=== PATIENT | male | born 1980 | race Caucasian/White ===

== ENCOUNTER → 2016-04-09 | Outpatient (CLI) | payer OTHER ==
--- NOTE | 2016-04-09 11:40 | XR ---
Lumbosacral spine HISTORY: Low back pain 5 views of the lumbosacral spine correlated to previous exam 04 July 2012 There is mild spinal curvature. Lumbar vertebral bodies show preserved height, alignment, and bone mi neralization. No evident spondylolysis. Loss of disc height present at L5-S1, there is associated vac uum phenomenon. Spondylosis is noted. Sclerosis present in the posterior elements. IMPRESSION: Degenerative disc disease. Facet arthropathy, consider lumbar MRI.
== END | disposition home or self-care (01) ==
LOC: RADXRMAIN 10:19
PROVIDERS: ATTEND Internal Medicine
DX: M51.37 Other intervertebral disc degeneration, lumbosacral region (principal); M12.88 Other specific arthropathies, not elsewhere classified, other specified site
CPT/HCPCS: 72110

== ENCOUNTER → 2016-04-23 | Outpatient (CLI) | payer OTHER ==
--- NOTE | 2016-04-23 09:02 | MR ---
EXAMINATION TYPE: MR lumbar spine wo con DATE OF EXAM: 04/23/2016 8:51 AM COMPARISON: NONE HISTORY: Inflammatory spondylopathies lsp, lower back pain TECHNIQUE: Multiplanar, multisequence images of the lumbar spine were acquired. L1-L2: Normal disc appearance without desiccation. No herniation, protrusion or disc bulging. No ca nal stenosis is present. Foramina are patent bilaterally. L2-L3: Normal disc appearance without desiccation. No herniation, protrusion or disc bulging. No ca nal stenosis is present. Foramina are patent bilaterally. L3-L4: Normal disc appearance without desiccation. No herniation, protrusion or disc bulging. No ca nal stenosis is present. Foramina are patent bilaterally. L4-L5: Mild disc desiccation is noted. There is mild posterior disc bulge with minimal effacement of the ventral thecal sac. No evidence of herniation protrusion or central stenosis. Foramina are patent . L5-S1: Moderate disc desiccation is noted. There is a left paracentral subligamentous disc herniation resulting in left lateral recess stenosis and left foraminal encroachment. No evidence for central s tenosis. Mild ventral spondylosis. Lumbar segments are intact. No paraspinal masses are identified. Conus medullaris has a normal appe arance. IMPRESSION: 1. Degenerative disc disease as discussed. 2. Left paracentral disc herniation at L5-S1 as noted above.
== END | disposition home or self-care (01) ==
LOC: RADMRIMAIN 08:08
PROVIDERS: ATTEND Internal Medicine
DX: M51.27 Other intervertebral disc displacement, lumbosacral region (principal); M51.36 Other intervertebral disc degeneration, lumbar region
CPT/HCPCS: 72148; A9577

== ENCOUNTER → 2018-02-24 | Outpatient (CLI) | payer OTHER ==
--- NOTE | 2018-02-25 03:44 | MR ---
EXAMINATION TYPE: MR knee LT wo con DATE OF EXAM: 02/24/2018 COMPARISON: None HISTORY: Knee pain TECHNIQUE: Multiplanar, multisequence imaging of the left knee is performed without IV contrast. FINDINGS: There is moderate knee joint effusion. There is abnormal increased signal involving a large area of t he medial tibial condyle. This is consistent with a bone bruise. I see no fracture line. Anterior cruciate ligament is intact. The posterior cruciate ligament is not well-defined. This proba js a tear in the posterior aspect of the posterior cruciate ligament near the attachment on the tibi a. There is small horizontal tear in the posterior horn medial meniscus. The lateral meniscus is intact. The collateral ligaments appear intact. IMPRESSION: The exam shows moderate joint effusion. There is at least a partial tear and probably a complete tear of the posterior cruciate ligament at the attachment on the tibia. Moderate-sized bone bruise in the medial tibial condyle. There is a 1.5 cm bone bruise at the tibial spines. No definite fracture line seen. Small horizontal tear of the posterior horn medial meniscus.
== END ==
LOC: RADMRIMAIN 19:36
PROVIDERS: ATTEND Orthopaedic Surgery
DX: M25.462 Effusion, left knee (principal); S83.522A Sprain of posterior cruciate ligament of left knee, initial encounter; S83.242A Other tear of medial meniscus, current injury, left knee, initial encounter; S80.12XA Contusion of left lower leg, initial encounter

== ENCOUNTER → 2019-04-21 | Outpatient (CLI) | payer BC, OTHER ==
--- NOTE | 2019-04-21 13:06 | MR ---
EXAMINATION TYPE: MR brain wo/w con DATE OF EXAM: 04/21/2019 COMPARISON: CT brain 02/03/2018 HISTORY: Dizziness and giddiness TECHNIQUE: Multiplanar, multisequence images of the brain and brainstem is performed without and with IV contras t, utilizing 7.5 mL intravenous Gadavist . FINDINGS: Diffusion weighted images demonstrate no evidence of a recent infarct or other diffusion ab normality. There is no extra-axial fluid collection. Scattered hyperintensities on inversion recove ry T2-weighted sequences present in the subcortical white matter, approximately 10 lesions are presen t, largest in the right frontal lobe measures 4 mm on axial image 17. The ventricular system and cist ernal spaces are normal in size and appearance. The brain volume is age appropriate. Midline structures demonstrate normal morphology. The craniocervical junction appears within normal limits. Post contrast images demonstrate no abnormal enhancement. The dural venous sinuses appear pa tent. The visualized sinuses are clear and the globes are intact. IMPRESSION: Nonspecific white matter demyelination of questionable clinical significance, consider mi graine headaches, hypertension, vasculitis, chronic small vessel ischemic changes, Lyme disease, mult iple sclerosis felt to be less likely.
== END | disposition home or self-care (01) ==
LOC: RADMRIMAIN 09:04
PROVIDERS: ATTEND Family Medicine
DX: R42 Dizziness and giddiness (principal)
CPT/HCPCS: 70553; A9585

== ENCOUNTER 2020-03-02 22:19 | Emergency (ER) | payer BC, OTHER ==
[2020-03-02 22:26] VITALS: PULSE 110; RESP 18; TEMP 98.2
[2020-03-02] MEDS ORDERED: SODIUM CHLORIDE 0.9% 1,000 ML IV STA (23:01)
[2020-03-02 23:15] LABS: Basophils # (A) 0.1 k/uL (0-0.2); Basophils % (A) 1 %; Eosinophils # (A) 0.1 k/uL (0-0.7); Eosinophils % (A) 1 %; HCT 45.7 % (39.0-53.0); Lymphocytes % (A) 21 %; MCH 33.8 pg (25.0-35.0); MCHC 35.1 g/dL (31.0-37.0); MCV 96.5 fL (80.0-100.0); Mean Platelet Volume 8.6; Monocytes # (A) 0.6 k/uL (0-1.0); Monocytes % (A) 6 %; Neutrophils # (A) 6.4 k/uL (1.3-7.7); Neutrophils % (A) 67 %; Platelet Count 236 k/uL (150-450); RBC 4.73 m/uL (4.30-5.90); RDW 11.7 % (11.5-15.5); WBC 9.5 k/uL (3.8-10.6)
[2020-03-02 23:33] LABS: ALT 25 U/L (4-49); AST 19 U/L (17-59); African American GFR (CKD) >90 (>60 ml/min/1.73 sqM); Albumin 4.8 g/dL (3.5-5.0); Alkaline Phosphatase 80 U/L (38-126); Anion Gap 9 mmol/L; Blood Urea Nitrogen 24 mg/dL (9-20); C Reactive Protein <5.0 mg/L (<10.0); Calcium 9.7 mg/dL (8.4-10.2); Carbon Dioxide 26 mmol/L (22-30); Chloride 103 mmol/L (98-107); Glucose 106 mg/dL (74-99); LDH 323 U/L (313-618); Non-African American GFR(CKD) >90 (>60 ml/min/1.73 sqM); Phosphorus 4.1 mg/dL (2.5-4.5); Potassium 3.8 mmol/L (3.5-5.1); Sodium 138 mmol/L (137-145); Total Bilirubin 0.5 mg/dL (0.2-1.3); Total Protein 6.9 g/dL (6.3-8.2)
--- NOTE | 2020-03-02 23:43 | ED ---
Recheck HPI - General Chief Complaint: Recheck/Abnormal Lab/Rx Stated Complaint: Chest Pain/High HR/High BP Time Seen by Provider: 03/02/20 22:27 Source: patient, RN notes reviewed, old records reviewed Mode of arrival: ambulatory Limitations: no limitations - History of Present Illness Initial Comments: This is a 39-year-old male DF states his does not feel well having increased anxiety and stress in his life lately weight loss decreased appetite. Patient admits to smoking marijuana daily. Otherwise no medications takes no medications is notices heart rate and blood pressures been elevated lately and that coupled with weight loss is had of concerned. Recent stress includes ex- and mother of this child as well as some business issues MD Complaint: other (Not feeling well weight loss) -: week(s) Returns Today for: other (Occasional palpitations no real pain) Symptoms Since Prior Visit: no new symptoms Context: other (None) Associated Symptoms: none Treatments Prior to Arrival: other (None) - Related Data Home Medications Medication Instructions Recorded Confirmed Multivitamins, Thera [Multivitamin 1 tab PO DAILY 02/03/18 02/03/18 (formulary)] Naproxen [Naprosyn] 500 mg PO Q12HR PRN 02/03/18 02/03/18 buPROPion XL [Wellbutrin Xl] 300 mg PO DAILY 02/03/18 02/03/18 Allergies Allergy/AdvReac Type Severity Reaction Status Date / Time No Known Allergies Allergy Verified 03/02/20 22:26 Review of Systems ROS Statement: Those systems with pertinent positive or pertinent negative responses have been documented in the HPI. ROS Other: All systems not noted in ROS Statement are negative. Past Medical History Past Medical History: No Reported History History of Any Multi-Drug Resistant Organisms: MRSA Date of last positivie culture/infection: 2009 MDRO Source:: abd Past Surgical History: No Surgical Hx Reported Additional Past Surgical History / Comment(s): mrsa in abd cleaned out Past Psychological History: No Psychological Hx Reported Smoking Status: Never smoker Past Alcohol Use History: None Reported Past Drug Use History: Marijuana General Exam Limitations: no limitations General appearance: alert, in no apparent distress, anxious Head exam: Present: atraumatic, normocephalic, normal inspection Eye exam: Present: normal appearance, PERRL, EOMI. Absent: scleral icterus, conjunctival injection, periorbital swelling ENT exam: Present: normal exam, mucous membranes moist Neck exam: Present: normal inspection. Absent: tenderness, meningismus, lymphadenopathy Respiratory exam: Present: normal lung sounds bilaterally. Absent: respiratory distress, wheezes, rales, rhonchi, stridor Cardiovascular Exam: Present: normal rhythm, tachycardia, normal heart sounds. Absent: systolic murmur, diastolic murmur, rubs, gallop, clicks GI/Abdominal exam: Present: soft, normal bowel sounds. Absent: distended, tenderness, guarding, rebound, rigid Extremities exam: Present: normal inspection, full ROM, normal capillary refill. Absent: tenderness, pedal edema, joint swelling, calf tenderness Back exam: Present: normal inspection Neurological exam: Present: alert, oriented X3, CN II-XII intact Psychiatric exam: Present: normal affect, normal mood Skin exam: Present: warm, dry, intact, normal color. Absent: rash Course Vital Signs 03/02/20 22:22 Temperature 98.2 F Pulse Rate 110 H Respiratory 18 Rate Blood Pressure 151/97 O2 Sat by Pulse 98 Oximetry - Reevaluation(s) Reevaluation #1: 03/03/20 02:33 Medical record is reviewed Reevaluation #2: 03/03/20 02:33 Patient symptoms are relatively resolved Reevaluation #3: 03/03/20 02:33 Patient informed of results and questions answered Medical Decision Making - Medical Decision Making 39 female to the ER for evaluation, patient presents today for evaluation of anorexia weight loss palpitations hypertension, patient will follow-up with primary care regards to hypertension otherwise patient feels well and can be discharged home - Lab Data Result diagrams: 03/02/20 22:53 03/02/20 23:01 Lab Results 03/02/20 03/02/20 03/02/20 Range/Units 22:53 23:01 23:01 WBC 9.5 (3.8-10.6) k/uL RBC 4.73 (4.30-5.90) m/uL Hgb 16.0 (13.0-17.5) gm/dL Hct 45.7 (39.0-53.0) % MCV 96.5 (80.0-100.0) fL MCH 33.8 (25.0-35.0) pg MCHC 35.1 (31.0-37.0) g/dL RDW 11.7 (11.5-15.5) % Plt Count 236 (150-450) k/uL MPV 8.6 Neutrophils % 67 % Lymphocytes % 21 % Monocytes % 6 % Eosinophils % 1 % Basophils % 1 % Neutrophils # 6.4 (1.3-7.7) k/uL Lymphocytes # 2.0 (1.0-4.8) k/uL Monocytes # 0.6 (0-1.0) k/uL Eosinophils # 0.1 (0-0.7) k/uL Basophils # 0.1 (0-0.2) k/uL Sodium 138 (137-145) mmol/L Potassium 3.8 (3.5-5.1) mmol/L Chloride 103 (98-107) mmol/L Carbon Dioxide 26 (22-30) mmol/L Anion Gap 9 mmol/L BUN 24 H (9-20) mg/dL Creatinine 1.03 (0.66-1.25) mg/dL Est GFR (CKD-EPI)AfAm >90 (>60 ml/min/1.73 sqM) Est GFR (CKD-EPI)NonAf >90 (>60 ml/min/1.73 sqM) Glucose 106 H (74-99) mg/dL Plasma Lactic Acid John 1.4 (0.7-2.0) mmol/L Calcium 9.7 (8.4-10.2) mg/dL Phosphorus 4.1 (2.5-4.5) mg/dL Magnesium 2.0 (1.6-2.3) mg/dL Total Bilirubin 0.5 (0.2-1.3) mg/dL AST 19 (17-59) U/L ALT 25 (4-49) U/L Alkaline Phosphatase 80 (38-126) U/L Lactate Dehydrogenase 323 (313-618) U/L C-Reactive Protein <5.0 (<10.0) mg/L Total Protein 6.9 (6.3-8.2) g/dL Albumin 4.8 (3.5-5.0) g/dL Urine Color Urine Appearance (Clear) Urine pH (5.0-8.0) Ur Specific [place] (1.001-1.035) Urine Protein (Negative) Urine Glucose (UA) (Negative) Urine Ketones (Negative) Urine Blood (Negative) Urine Nitrite (Negative) Urine Bilirubin (Negative) Urine Urobilinogen (<2.0) mg/dL Ur Leukocyte Esterase (Negative) Urine WBC (0-5) /hpf 03/03/20 Range/Units 01:55 WBC (3.8-10.6) k/uL RBC (4.30-5.90) m/uL Hgb (13.0-17.5) gm/dL Hct (39.0-53.0) % MCV (80.0-100.0) fL MCH (25.0-35.0) pg MCHC (31.0-37.0) g/dL RDW (11.5-15.5) % Plt Count (150-450) k/uL MPV Neutrophils % % Lymphocytes % % Monocytes % % Eosinophils % % Basophils % % Neutrophils # (1.3-7.7) k/uL Lymphocytes # (1.0-4.8) k/uL Monocytes # (0-1.0) k/uL Eosinophils # (0-0.7) k/uL Basophils # (0-0.2) k/uL Sodium (137-145) mmol/L Potassium (3.5-5.1) mmol/L Chloride (98-107) mmol/L Carbon Dioxide (22-30) mmol/L Anion Gap mmol/L BUN (9-20) mg/dL Creatinine (0.66-1.25) mg/dL Est GFR (CKD-EPI)AfAm (>60 ml/min/1.73 sqM) Est GFR (CKD-EPI)NonAf (>60 ml/min/1.73 sqM) Glucose (74-99) mg/dL Plasma Lactic Acid John (0.7-2.0) mmol/L Calcium (8.4-10.2) mg/dL Phosphorus (2.5-4.5) mg/dL Magnesium (1.6-2.3) mg/dL Total Bilirubin (0.2-1.3) mg/dL AST (17-59) U/L ALT (4-49) U/L Alkaline Phosphatase (38-126) U/L Lactate Dehydrogenase (313-618) U/L C-Reactive Protein (<10.0) mg/L Total Protein (6.3-8.2) g/dL Albumin (3.5-5.0) g/dL Urine Color Light Yellow Urine Appearance Clear (Clear) Urine pH 5.5 (5.0-8.0) Ur Specific [place] 1.012 (1.001-1.035) Urine Protein Negative (Negative) Urine Glucose (UA) Negative (Negative) Urine Ketones Negative (Negative) Urine Blood Negative (Negative) Urine Nitrite Negative (Negative) Urine Bilirubin Negative (Negative) Urine Urobilinogen <2.0 (<2.0) mg/dL Ur Leukocyte Esterase Trace H (Negative) Urine WBC 2 (0-5) /hpf - EKG Data -: EKG Interpreted by Me (EKG shows sinus rhythm 86 HI 152 QRS 94 QTC 40 to) - Radiology Data Radiology results: report reviewed (CT brain and chest abdomen pelvis negative for acute disease), image reviewed Disposition Clinical Impression: Weakness, Anxiety, Hypertension Disposition: HOME SELF-CARE Condition: Good Instructions (If sedation given, give patient instructions): Stress (ED), Hypertension (ED) Is patient prescribed a controlled substance at d/c from ED?: No Referrals: Giuliana Castellano MD [Primary Care Provider] - 1-2 days
--- NOTE | 2020-03-03 01:43 | CT ---
EXAM: CT Head Without Intravenous Contrast CLINICAL HISTORY: ITS.REASON CT Reason: pain TECHNIQUE: Axial computed tomography images of the head/brain without intravenous contrast. CTDI is 50.8 mGy and DLP is 1028.4 mGy-cm. This CT exam was performed using one or more of the following dose reduction techniques: automated exposure control, adjustment of the mA and/or kV according to patient size, and/or use of iterative reconstruction technique. COMPARISON: 02/03/2018 FINDINGS: Brain: No acute intracranial hemorrhage. Baer-white differentiation is preserved throughout the cerebral hemispheres. Posterior fossa is symmetric. Ventricles: Unremarkable. No ventriculomegaly. Basilar cisterns are widely patent. Bones/joints: Unremarkable. No acute fracture. Soft tissues: Unremarkable. Orbits and globes are normal in appearance. Sinuses: Unremarkable as visualized. No acute sinusitis. Mastoid air cells: Unremarkable as visualized. No mastoid effusion. IMPRESSION: No acute intracranial abnormality.
--- NOTE | 2020-03-03 01:45 | CT ---
EXAM: CT Angiography Chest With Intravenous Contrast CLINICAL HISTORY: ITS.REASON CT Reason: pain TECHNIQUE: Axial computed tomographic angiography images of the chest with intravenous contrast. CTDI is 14.5 mGy and DLP is 540.6 mGy-cm. This CT exam was performed using one or more of the following dose reduction techniques: automated exposure control, adjustment of the mA and/or kV according to patient size, and/or use of iterative reconstruction technique. MIP reconstructed images were created and reviewed. COMPARISON: 02/03/2018 FINDINGS: Pulmonary arteries: Unremarkable. No pulmonary embolism. Aorta: No acute findings. No thoracic aortic aneurysm. Lungs: Unremarkable. No mass. No consolidation. Pleural space: Unremarkable. No significant effusion. No pneumothorax. Heart: Unremarkable. No cardiomegaly. No significant pericardial effusion. Bones/joints: No acute fracture. No dislocation. Soft tissues: Unremarkable. Lymph nodes: Unremarkable. No enlarged lymph nodes. IMPRESSION: 1. No acute pulmonary embolism. 2. No acute intrathoracic process.
--- NOTE | 2020-03-03 01:47 | CT ---
EXAM: CT Abdomen and Pelvis With Intravenous Contrast CLINICAL HISTORY: ITS.REASON CT Reason: pain TECHNIQUE: Axial computed tomography images of the abdomen and pelvis with intravenous contrast. CTDI is 14.5 mGy and DLP is 540.6 mGy-cm. This CT exam was performed using one or more of the following dose reduction techniques: automated exposure control, adjustment of the mA and/or kV according to patient size, and/or use of iterative reconstruction technique. COMPARISON: 02/03/2018 FINDINGS: Lung bases: Unremarkable. No mass. No consolidation. ABDOMEN: Liver: Unremarkable. No mass. Gallbladder and bile ducts: Unremarkable. No calcified stones. No ductal dilation. Pancreas: Unremarkable. No mass. No ductal dilation. Spleen: Unremarkable. No splenomegaly. Adrenals: Unremarkable. No mass. Kidneys and ureters: Unremarkable. No solid mass. No hydronephrosis. Stomach and bowel: Unremarkable. No obstruction. No mucosal thickening. PELVIS: Appendix: No findings to suggest acute appendicitis. Bladder: Unremarkable. No mass. Reproductive: Unremarkable as visualized. ABDOMEN and PELVIS: Intraperitoneal space: Unremarkable. No free air. No significant fluid collection. Bones/joints: No acute fracture. No dislocation. Soft tissues: Unremarkable. Vasculature: Unremarkable. No abdominal aortic aneurysm. Lymph nodes: Unremarkable. No enlarged lymph nodes. IMPRESSION: No acute intra-abdominal process.
[2020-03-03 02:12] LABS: Appearance,Urine Clear (Clear); Bilirubin,Urine Negative (Negative); Blood,Urine Negative (Negative); Color,Urine Light Yellow; Glucose,Urine (UA) Negative (Negative); Ketones,Urine Negative (Negative); Leukocyte Esterase,Urine Trace (Negative); Nitrite,Urine Negative (Negative); PH, Urine 5.5 (5.0-8.0); Protein,Urine Negative (Negative); Specific Gravity,Urine 1.012 (1.001-1.035); Urobilinogen,Urine <2.0 mg/dL (<2.0); WBC,Urine 2 /hpf (0-5)
[2020-03-03 02:33] VITALS: BP 131/85
== END 2020-03-03 02:28 | disposition home or self-care (01) ==
LOC: EC 22:19
DX: F41.9 Anxiety disorder, unspecified (principal); I10 Essential (primary) hypertension; R53.1 Weakness; Z79.899 Other long term (current) drug therapy
CPT/HCPCS: 36415; 93005; 80053; 83605; 83615; 83735; 84100; 85025; 86140; 81001; 70450; 71275; 74177; 99284; 96360; Q9967

== ENCOUNTER 2024-07-02 20:08 | Emergency (ER) | payer OTHER ==
[2024-07-02] MEDS: AMOXIC-POT CLAV 875-125MG 1 EACH TAB PO STA (20:47)
[2024-07-02] MEDS: LIDOCAINE 1% INJ 10MG/ML (20 ML MDV) SQ ONE (20:48)
[2024-07-02] MEDS: DIPH,PERTUS(ACELL)TETVAC-LF 0.5 ML VIAL IM ONE (20:48)
[2024-07-02] MEDS: KETOROLAC 15 MG/ML 1 ML VIAL IM STA (20:49)
--- NOTE | 2024-07-02 21:05 | ED ---
General Adult HPI - General Chief complaint: Animal Bite Stated complaint: animal bite Time Seen by Provider: 07/02/24 20:19 Source: patient, RN notes reviewed Mode of arrival: ambulatory Limitations: no limitations - History of Present Illness Initial comments: 44-year-old male presents to the emergency department for dog bite to his right index finger. Patient states that he went over to his friend's house and opened the door. He states that the dog ran up and bit him in the hand. He reports that the dog is up-to-date on vaccines including rabies. Patient is unsure when he last had a tetanus vaccine. - Related Data Home Medications Medication Instructions Recorded Confirmed Multivitamins, Thera [Multivitamin 1 tab PO DAILY 02/03/18 02/03/18 (formulary)] Naproxen [Naprosyn] 500 mg PO Q12HR PRN 02/03/18 02/03/18 buPROPion XL [Wellbutrin Xl] 300 mg PO DAILY 02/03/18 02/03/18 Previous Rx's Medication Instructions Recorded Amoxic-Pot Clav 875-125Mg 1 tab PO Q12HR #20 tab 07/02/24 [Augmentin 875-125] Allergies Allergy/AdvReac Type Severity Reaction Status Date / Time No Known Allergies Allergy Verified 07/02/24 20:15 Review of Systems ROS Statement: Those systems with pertinent positive or pertinent negative responses have been documented in the HPI. ROS Other: All systems not noted in ROS Statement are negative. Past Medical History Past Medical History: No Reported History History of Any Multi-Drug Resistant Organisms: MRSA Date of last positivie culture/infection: 2009 MDRO Source:: abd Past Surgical History: No Surgical Hx Reported Additional Past Surgical History / Comment(s): mrsa in abd cleaned out Past Psychological History: Anxiety, Bipolar, Depression Smoking Status: Former smoker Past Alcohol Use History: None Reported Past Drug Use History: Marijuana General Exam Limitations: no limitations General appearance: alert, in no apparent distress Head exam: Present: atraumatic, normocephalic, normal inspection Eye exam: Present: normal appearance, PERRL, EOMI. Absent: scleral icterus, conjunctival injection, periorbital swelling Respiratory exam: Present: normal lung sounds bilaterally. Absent: respiratory distress, wheezes, rales, rhonchi, stridor Cardiovascular Exam: Present: regular rate, normal rhythm, normal heart sounds. Absent: systolic murmur, diastolic murmur, rubs, gallop, clicks Extremities exam: Present: full ROM, normal capillary refill, other (Puncture wounds to the right hand and 1.5 centimeter laceration to the dorsal right second digit). Absent: tenderness, pedal edema, joint swelling, calf tenderness Neurological exam: Present: alert, oriented X3 Psychiatric exam: Present: normal affect, normal mood Skin exam: Present: warm, dry, normal color, other (See above). Absent: intact, rash Course Vital Signs 07/02/24 07/02/24 20:12 21:44 Temperature 97.7 F 98.0 F Pulse Rate 75 56 L Respiratory 16 18 Rate Blood Pressure 160/108 138/88 O2 Sat by Pulse 98 98 Oximetry Procedures - Laceration Laceration #1 Consent Obtained: verbal consent Indication: laceration Site: hand Size (cm): 2 Description: linear Depth: simple, single layer Anesthetic Used: lidocaine 1% Anesthesia Technique: nerve block Amount (mls): 6 Pre-repair: wound explored, irrigated extensively Type of Sutures: other Size of Sutures: 5-0 Number of Sutures: 3 Technique: simple, interrupted Patient Tolerated Procedure: well, no complications Medical Decision Making - Medical Decision Making Was pt. sent in by a medical professional or institution (ESTELA Jackson, [employer] INSPECTOR, urgent care, hospital, or [facility]...) When possible be specific @ -No Did you speak to anyone other than the patient for history (EMS, parent, family, police, friend...)? What history was obtained from this source @ -No Did you review nursing and triage notes (agree or disagree)? Why? @ -I reviewed and agree with nursing and triage notes Were old charts reviewed (outside hosp., previous admission, EMS record, old EKG, old radiological studies, urgent care reports/EKG's, [facility] records)? Report findings @ -No old charts were reviewed Differential Diagnosis (chest pain, altered mental status, abdominal pain women, abdominal pain men, vaginal bleeding, weakness, fever, dyspnea, syncope, headache, dizziness, GI bleed, back pain, seizure, CVA, palpatations, mental health, musculoskeletal)? @ -Laceration, dog bite, tetanus prophylaxis, this is not all-inclusive EKG interpreted by me (3pts min.). @ -None X-rays interpreted by me (1pt min.). @ -X-ray of the hand reveals no evidence of fracture or dislocation, no evidence of foreign body CT interpreted by me (1pt min.). @ -None done U/S interpreted by me (1pt. min.). @ -None done What testing was considered but not performed or refused? (CT, X-rays, U/S, labs)? Why? @ -None What meds were considered but not given or refused? Why? @ -None Did you discuss the management of the patient with other professionals (professionals i.e. , PA, B[employer]CH ASSEMBLY INSPECTOR, lab, RT, psych nurse, health social work professor, director pharmacy services, teacher, officer lieutenant, caseworker intake)? Give summary @ -No Was smoking cessation discussed for >3mins.? @ -No Was critical care preformed (if so, how long)? @ -No Were there social determinants of health that impacted care today? How? (Homelessness, low income, unemployed, alcoholism, drug addiction, transportation, low edu. Level, literacy, decrease access to med. care, senior care, rehab)? @ -No Was there de-escalation of care discussed even if they declined (Discuss DNR or withdrawal of care, Hospice)? DNR status @ -No What co-morbidities impacted this encounter? (DM, HTN, Smoking, COPD, CAD, Cancer, CVA, ARF, Chemo, Hep., AIDS, mental health diagnosis, sleep apnea, morbid obesity)? @ -None Was patient admitted / discharged? Hospital course, mention meds given and route, prescriptions, significant lab abnormalities, going to OR and other pertinent info. @ -Discharge. Patient presented to the emergency department for evaluation of dog bite to the right hand. X-rays obtained revealing no evidence of foreign body, overlying soft tissue injury is noted. The wounds were irrigated with saline. There is a laceration on the dorsal aspect of the second digit which was repaired loosely. The patient was updated on a tetanus shot. Patient was given a dose of Augmentin. A prescription was sent to the patient's pharmacy for Augmentin for prophylaxis. Patient advised to keep wound clean and dry. He is understanding agreeable with discharge plan. Patient stable at time of discharge. Case discussed with Dr. Bravo. Undiagnosed new problem with uncertain prognosis? @ -No Drug Therapy requiring intensive monitoring for toxicity (Heparin, Nitro, Insulin, Cardizem)? @ -No Were any procedures done? @ -No Diagnosis/symptom? @ -Dog bite Acute, or Chronic, or Acute on Chronic? @ -Acute Uncomplicated (without systemic symptoms) or Complicated (systemic symptoms)? @ -Uncomplicated Side effects of treatment? @ -No Exacerbation, Progression, or Severe Exacerbation? @ -No Poses a threat to life or bodily function? How? (Chest pain, [place], [place], pneumonia, PE, COPD, DKA, ARF, appy, cholecystitis, CVA, Diverticulitis, Homicidal, Suicidal, threat to staff... and all critical care pts) @ -No Disposition Clinical Impression: Dog bite Disposition: HOME SELF-CARE Condition: Stable Instructions (If sedation given, give patient instructions): Animal Bite (ED) Additional Instructions: Please follow up with your doctor. Keep your wound clean and dry. Follow up with your primary care provider. Return to the emergency department for new or worsening symptoms. Prescriptions: Amoxic-Pot Clav 875-125Mg [Augmentin 875-125] 1 tab PO Q12HR #20 tab Is patient prescribed a controlled substance at d/c from ED?: No Referrals: Giuliana Castellano MD [Primary Care Provider] - 1-2 days
--- NOTE | 2024-07-02 21:24 | XR ---
EXAMINATION TYPE: XR finger RT DATE OF EXAM: 07/02/2024 9:03 PM COMPARISON: None. CLINICAL INDICATION: Male, 44 years old with history of 2nd digit dog bite, pain TECHNIQUE: 3 view(s) obtained. FINDINGS: Soft tissue injury over the proximal phalanx right index finger. No radiopaque foreign bodies are [place] dent. No acute fracture is evident joint spaces are preserved. Follow up exams can be performed 7-10 days from acute trauma for continued pain. IMPRESSION: 1. Soft tissue injury proximal index finger. 2. No underlying osseous abnormality [facility], , 07/02/2024 9:21 PM
[2024-07-02 21:48] VITALS: BP 138/88; PULSE 56; RESP 18; TEMP 98
== END 2024-07-02 21:48 | disposition home or self-care (01) ==
LOC: EC 20:08
DX: S61.250A Open bite of right index finger without damage to nail, initial encounter (principal); Z87.891 Personal history of nicotine dependence; Z23 Encounter for immunization; W54.0XXA Bitten by dog, initial encounter
CPT/HCPCS: 73140; 90715; 99283; 90471; 96372; 12001; J2003; J1885